=== PATIENT | female | born 1980 | race Caucasian/White ===

== ENCOUNTER 2018-03-27 12:34 | Outpatient (CLI) | payer BC ==
[~2018-03-27 12:34] MED LIST: Gadobenate Dimeglumine 529 MG/1 ML (20ML VIAL) ONE
--- NOTE | 2018-03-27 14:52 | MRI ---
MRI OF THE BRAIN WITHOUT AND WITH CONTRAST: Comparison: None. History: Migraine headaches that are lasting longer. Comparison: 09-06-08 Technique: Multiplanar, multisequence MR images were obtained of the brain without and with IV contra st. FINDINGS: There are a few scattered foci of high FLAIR signal in the subcortical and periventricular white felipe er. When compared to the prior examination, these appear to have slightly worsened. No restricted dif fusion is seen to suggest an acute infarction. No abnormal enhancement is seen. There is no evidence of hydrocephalus, intracranial hemorrhage, or extraaxial fluid collection. The e xpected flow voids are present. The corpus callosum, pituitary, and craniocervical junction are unrem arkable. Calvarium and overlying soft tissues are unremarkable. The visualized paranasal sinuses and mastoid a ir cells are well aerated. IMPRESSION: There is scattered foci of high T2/FLAIR signal in the subcortical and periventricular white matter. When compared to the prior examination, these appear to be progressing. These are nonspecific and can be seen with small vessel ischemic disease, demyelinating conditions or vasculitities. POS: JADEH
== END 2018-03-27 12:35 | disposition home or self-care (01) ==
LOC: SCSMRI 12:34
PROVIDERS: ATTEND Otolaryngology Plastic Surgery within the Head & Neck
DX: G43.909 Migraine, unspecified, not intractable, without status migrainosus (principal); R93.0 Abnormal findings on diagnostic imaging of skull and head, not elsewhere classified
CPT/HCPCS: 70553; A9579

== ENCOUNTER 2018-06-08 16:04 | Outpatient (CLI) | payer BC | END 2018-06-08 16:05 | disposition home or self-care (01) | LOC: CTENTCT 16:04 | PROVIDERS: ATTEND Physician Assistant | DX: J01.91 Acute recurrent sinusitis, unspecified (principal) | CPT/HCPCS: 70486 ==

== ENCOUNTER 2018-07-05 07:34 | Day surgery (SDC) | payer BC ==
[2018-07-04 13:26] VITALS: BMI 28.0
[2018-07-05] MEDS ORDERED: Oxymetazoline HCl 0.05% ( 15 ML ) ONE ×2 (08:26→08:50)
[2018-07-05] MEDS ORDERED: Fentanyl 100 MCG/2 ML VIAL ONE ×4 (08:47→10:25)
[2018-07-05] MEDS ORDERED: Midazolam HCl 2 mg/2 ml Vial ONE (08:47)
[2018-07-05] MEDS ORDERED: Lidocaine 1% w/Epinephrine 1:100K 30 ML VIAL ONE (08:50)
[2018-07-05] MEDS ORDERED: Bacitracin Zinc Ointment 30 gm TUBE ONE (08:50)
[2018-07-05] MEDS ORDERED: HYDROcodone/Acetaminophen 5/325 mg Tablet ONE (11:00)
[2018-07-05] MEDS ORDERED: Ondansetron HCl/PF 4 MG/2 ML Vial ONE (14:39)
[2018-07-05] MEDS ORDERED: Dexamethasone 20 MG/5 ML VIAL ONE (14:39)
[2018-07-05] MEDS ORDERED: Lidocaine 1% PF 5 ML VIAL ONE (14:39)
[2018-07-05] MEDS ORDERED: PROPOFOL 200 MG/20 ML VIAL ONE (14:39)
--- NOTE | 2018-07-06 10:11 | OP ---
PREOPERATIVE DIAGNOSES: 1. Chronic rhinosinusitis. 2. Bilateral inferior turbinate hypertrophy. 3. Nasal obstruction. POSTOPERATIVE DIAGNOSES: 1. Chronic rhinosinusitis. 2. Bilateral inferior turbinate hypertrophy. 3. Nasal obstruction. PROCEDURES: 1. Bilateral endoscopic sinus surgery, total ethmoidectomies. 2. Bilateral endoscopic sinus surgery, maxillary antrostomies. 3. Bilateral endoscopic sinus surgery, frontal sinusotomies. 4. Bilateral inferior turbinate submucosal resection. SURGEON: Venu Roth M.D. ESTIMATED BLOOD LOSS: 20 mL. COMPLICATIONS: None. ANESTHESIA: GETA. PROCEDURE IN DETAIL: The patient was taken to the operating room and placed on the table. General e ndotracheal anesthesia obtained by the staff. Tube was secured in the left lower lip. The patient w as placed in the beach chair position and was prepped and draped in standard surgical fashion. Follo wing this, the 0 degree endoscope was advanced in the nasal cavity. 1% lidocaine with 1:100,000 epin ephrine was injected into the inferior turbinates, middle turbinates and lateral nasal wall. Followi ng this, the 0 degree endoscope was advanced in the nasal cavity. The middle turbinates were gently medialized using a Berthoud elevator. The uncinate process was noted to be atrophic and lateralized. U sing a ball-ended probe, the uncinate process was anteriorly fractured. Following this, the uncinate process was removed using the straight microdebrider and upbiting Blakesley forceps bilaterally. Fo llowing this, the natural maxillary sinus ostia was identified and was gently widened using the ball- ended probe bilaterally. The maxillary sinus ostia were then further widened using the microdebrider and straight Blakesley forceps. Following this, the ethmoidal bulla was identified bilaterally and was punctured on its medial and inferior aspect with the microdebrider was removed. Following this, the grand lamella was identified and was punctured in the posterior ethmoidal cells. Working from po sterior to anterior, the ethmoidal cells were opened in a mucosal-sparing technique. Following this, the 30-degree endoscope along with 40-degree microdebrider blade was then used to further open the f rontal recess cells and open the frontal sinus ostia bilaterally. Following this, the nasal cavity w as irrigated, Mirapex were placed in the middle meatus. Inferior turbinates were then punctured on t he anterior inferior aspect with the submucosal microdebrider and submucosal resection was performed bilaterally. The patient tolerated the procedure well.
== END 2018-07-05 11:45 | disposition home or self-care (01) ==
LOC: SDC 07:34
PROVIDERS: ATTEND Otolaryngology Plastic Surgery within the Head & Neck
PROC: 09TV8ZZ Resection of Left Ethmoid Sinus, Via Natural or Artificial Opening Endoscopic (ICD-10-PCS; principal; 2018-07-05)
PROC: 09TU8ZZ Resection of Right Ethmoid Sinus, Via Natural or Artificial Opening Endoscopic (ICD-10-PCS; principal; 2018-07-05)
DX: J32.9 Chronic sinusitis, unspecified (principal); J34.3 Hypertrophy of nasal turbinates; J30.0 Vasomotor rhinitis
CPT/HCPCS: 36415; 85014; 96374; 96376; J1100; J2001; J2250; J2405; J2704; J3010; J7620

== ENCOUNTER 2019-07-18 16:07 | Outpatient (CLI) | payer BC ==
--- NOTE | 2019-07-18 16:48 | RAD ---
SUPINE ABDOMEN: 07/18/19 INDICATIONS: Constipation. Prominent stool and gas throughout the colon consistent with the history of constipation. Scattered n onspecific small bowel gas is noted. No mass effect. Postoperative changes are noted in the upper abd omen with surgical clips. IMPRESSION: Prominent stool throughout the colon. POS: OFF
== END 2019-07-18 16:08 | disposition home or self-care (01) ==
LOC: BICRAD 16:07
PROVIDERS: ATTEND Physician Assistant Medical
DX: K59.01 Slow transit constipation (principal); R19.5 Other fecal abnormalities
CPT/HCPCS: 74019

== ENCOUNTER 2019-08-09 12:11 | Outpatient (CLI) | payer BC ==
--- NOTE | 2019-08-09 13:04 | RAD ---
Colonic motility study-KUB: 08/09/2019 HISTORY: Initial radiograph following ingestion of Sitzmarks for colonic motility assessment. FINDINGS: There are clips in the right upper quadrant. Clips and postsurgical suture material noted i n the left upper quadrant. There is a collection of round radiopaque Sitzmarks in the medial left upper quadrant, consistent wit h recently ingested foreign bodies to be later imaged to determine colonic motility. The bowel gas pattern appears nonobstructed. IMPRESSION: Collection of ingested foreign bodies left upper quadrant as above
== END 2019-08-09 12:12 | disposition home or self-care (01) ==
LOC: RAD 12:11
PROVIDERS: ATTEND Internal Medicine Gastroenterology
DX: K59.01 Slow transit constipation (principal); S30.851A Superficial foreign body of abdominal wall, initial encounter
CPT/HCPCS: 74018

== ENCOUNTER 2019-08-13 11:28 | Outpatient (CLI) | payer BC ==
--- NOTE | 2019-08-13 12:15 | RAD ---
EXAM: XR Colonic Motility Study PROVIDED CLINICAL HISTORY: Constipation, slow transition of bowel contents. COMPARISON: 08/09/2019. FINDINGS: Postsurgical changes are again seen in the upper abdomen with surgical clips and radiopaque suture ma terial present. Multiple Sitzmarks were seen in the epigastric region on the prior exam which are not visualized on today's study. The lowermost rectum is not imaged on this exam. The bowel gas patte rn is overall nonspecific. No other interval change. IMPRESSION: Previously noted multiple Sitzmarks overlying the epigastric region on prior study are not visualized on today's exam. The lowermost rectum was not imaged on this exam.
== END 2019-08-13 11:29 | disposition home or self-care (01) ==
LOC: RAD 11:28
PROVIDERS: ATTEND Internal Medicine Gastroenterology
DX: K59.01 Slow transit constipation (principal)
CPT/HCPCS: 74018

== ENCOUNTER 2020-06-05 08:45 | Outpatient (CLI) | payer BC, OTHER ==
[2020-06-05 17:14] LABS: SARS-CoV-2 MS2 Positive; SARS-CoV-2 N Gene Negative; SARS-CoV-2 S Gene Negative; SARS-CoV-2 by NAA Not Detected (NotDetected); SARS-CoV-2 orf1ab Negative
== END 2020-06-05 08:46 | disposition home or self-care (01) ==
LOC: LABSCS 08:45
PROVIDERS: ATTEND Specialist
DX: E66.01 Morbid (severe) obesity due to excess calories (principal); Z20.828 Contact with and (suspected) exposure to other viral communicable diseases
CPT/HCPCS: 87635; U0003

== ENCOUNTER 2020-06-09 08:32 | Outpatient (CLI) | payer BC ==
--- NOTE | 2020-06-09 10:00 | RAD ---
EXAM: XR UGI Air Contrast PROVIDED CLINICAL HISTORY: History of prior gastric sleeve procedure. Patient is having worsening gastroesophageal reflux. COMPARISON: None FINDINGS: Single contrast upper GI was performed. The esophagus has a normal appearance without evidence of a m ucosal irregularity or focal area of narrowing. Minimal tertiary contractions were noted during the exam. There is no evidence of a hiatal hernia. Postoperative changes related to prior gastric sleeve procedure are seen, but the stomach otherwise demonstrates a normal appearance. No gastroesophageal reflux was demonstrated during the exam. The duodenum and proximal small bowel have a normal appearan ce. Asphalt Patcher image of the abdomen demonstrates postoperative changes of the upper abdomen with multiple surg ical clips and radiopaque suture material. Small to moderate amount retained fecal material is seen throughout the colon. The bowel gas pattern is nonspecific. Visualized lung bases are clear. IMPRESSION: 1. Postoperative changes related to gastric sleeve procedure. 2. No evidence of gastroesophageal reflux noted during this exam. 3. Mild tertiary contractions of the distal esophagus.
== END 2020-06-09 08:33 | disposition home or self-care (01) ==
LOC: RAD 08:32
PROVIDERS: ATTEND Specialist
DX: E66.01 Morbid (severe) obesity due to excess calories (principal); K22.8 Other specified diseases of esophagus; Z98.890 Other specified postprocedural states
CPT/HCPCS: 74246

== ENCOUNTER 2020-08-01 06:37 | Outpatient (CLI) | payer BC ==
[2020-08-03 12:10] LABS: SARS-CoV-2 MS2 Positive; SARS-CoV-2 N Gene Negative; SARS-CoV-2 S Gene Negative; SARS-CoV-2 by NAA Not Detected (NotDetected); SARS-CoV-2 orf1ab Negative
--- NOTE | 2020-08-06 06:55 | EKG ---
Test Reason : Blood Pressure : / mmHG Vent. Rate : 082 BPM Atrial Rate : 082 BPM P-R Int : 118 ms QRS Dur : 092 ms QT Int : 368 ms P-R-T Axes : 044 072 013 degrees QTc Int : 429 ms Normal sinus rhythm Normal ECG No previous ECGs available Confirmed by ZOYA THOMAS MD ([id number]) on 08/06/2020 6:55:38 AM Referred By: RANJANA Confirmed By:ZOYA THOMAS MD
== END 2020-08-01 06:38 | disposition home or self-care (01) ==
LOC: LABBT 06:37
PROVIDERS: ATTEND Specialist
DX: Z01.818 Encounter for other preprocedural examination (principal); K21.9 Gastro-esophageal reflux disease without esophagitis; K30 Functional dyspepsia; Z91.89 Other specified personal risk factors, not elsewhere classified; Z98.84 Bariatric surgery status; Z20.828 Contact with and (suspected) exposure to other viral communicable diseases
CPT/HCPCS: 87635; 93005; 93010; U0003

== ENCOUNTER 2020-08-01 13:15 | Inpatient (IN) | payer BC ==
--- NOTE | 2020-08-05 08:06 | HP ---
HISTORY OF PRESENT ILLNESS: Angella Adrian is a 39-year-old female, who has undergone laparoscopic cholecystectomy on 05/23/2015 and subsequent laparoscopic sleeve gastrectomy on 05/17/2016 for morbid obesity, 280 pounds, 41 BMI. Comorbidities of anxiety, low back pain, elevated cholesterol, and triglycerides. The patient had mild reflux controlled with Prilosec at that time, it did not feel to be prohibitive for sleeve gastrectomy. The patient has done well postoperatively after sleeve gastrectomy. During the COV period though, she has gained weight. She was seen by Dr. Stokes for a period of time, underwent endoscopies, 24-hour pH monitoring for complaint of reflux. Reflux become so severe that she was taking two a day PPIs and adding a third medication. PH monitor revealed significant reflux, but also revealed that she is having more symptoms than reflux demonstrated. She also had problems with colonic motility and undergone colonic motility study that was normal. She is followed by Dr. Nathan Skinner. The patient's initial preoperative weight 280 pounds and 41 BMI. Followup October 08, 2016 revealed her to have a 28 BMI. She presented back to see me 06/10/2020 noting 35 BMI and 241 pounds. The patient had gained weight over . She was asked to see Oseas, our dietitian, who talked to her about her eating habits, which she has adjusted. She has had an upper GI revealing a tortuous sleeve gastrectomy. She underwent EGD with Dr. Charles Johnson demonstrating a tortuous sleeve gastrectomy with retained food particles. There was no obstruction. Considering the patient's reflux problems and her gastric emptying problems without mechanical obstruction, agree with her desire to have a laparoscopic sleeve gastrectomy revision. She understands risks of revision, increased leakage, bleeding, reoperation, and we will proceed with that. She will visit our dietitian to refresh her memory and preop and perioperative dietary progression and changes regarding her laparoscopic Karthikeyan-en-Y gastric bypass. Risks and benefits, as noted above, explained, questions answered. Weight today 233 pounds, 34 BMI. Laboratories, June 06, 2020 reveals normal comprehensive metabolic profile. Hemoglobin A1c of 5.4. Cholesterol of 230, triglycerides 147, and normal vitamins. CBC June 06, hemoglobin 12. White count 6.7 and platelet count 318,000. MEDICATIONS: 1. Protonix 40 mg once a day. 2. Xyzal. ALLERGIES: , AMITRIPTYLINE, AND APRESOLINE. PAST MEDICAL HISTORY: Anxiety, chronic back pain, celiac disease, mildly elevated cholesterol, reflux, poor gastric emptying, and constipation. PAST SURGICAL HISTORY: Laparoscopic cholecystectomy 05/23/2015, sleeve gastrectomy laparoscopic 05/07/2016, and endoscopic sinus surgery 07/05/2018. FAMILY HISTORY: Hypertension and obesity. SOCIAL HISTORY: Tobacco, none. Alcohol, rarely. Occasional beer. REVIEW OF SYSTEMS: Ten-point noncontributory. PHYSICAL EXAMINATION: VITAL SIGNS: Height 5 feet 9 inches, 233 pounds, and 34 BMI. 125/81, 75, 97.4 degrees. HEAD, EARS, EYES, NOSE, AND THROAT: Unremarkable. LUNGS: Clear to auscultation. CARDIAC: Regular rate and rhythm without murmur or gallop. ABDOMEN: Soft, obese. Trocar sites well healed without hernias. EXTREMITIES: No edema. ASSESSMENT AND PLAN: 1. Morbid obesity. Plan laparoscopic Karthikeyan-en-Y gastric bypass conversion, risk of revisional surgery discussed. Questions answered. 2. Elevated cholesterol. 3. Reflux. 4. Poor gastric emptying. Job ID: [id number]
--- NOTE | 2020-08-05 14:17 | HP ---
ADDENDUM: This is an addendum to history and physical #[id number] dictated 07/08/2020. Angella Adrian, a 39-year-old female, history of laparoscopic cholecystectomy in April 2015 and sleeve gastrectomy in April 2016. Did well initially, losing weight, but had weight regain. Postoperatively, she lost down to 189 pounds but since June 08 she has gained weight to 233 pounds, 34 BMI. Preoperative weight 280 pounds, 41 BMI. She has seen Lizbet, our dietitian, discussed with her, made efforts, and she has not gained weight, but has not lost significant weight. She has undergone upper GI, which was unremarkable, consistent with sleeve gastrectomy. Dr. Charles Johnson performed upper endoscopy, retained food particles and some convolution of the sleeve. She was placed on full liquids there, but has been back on a bariatric diet, doing well. The plan is to proceed with revision to laparoscopic gastric bypass. She understands risks and benefits, consents. Questions answered. She has an appointment to see our dietitian and regulatory compliance coordinator regarding perioperative staged diet advancement for post gastric bypass. She understands the increased risk of revisional surgery and will proceed. Please refer to recent dictation [id number] for details of her past history, which has not changed. PHYSICAL EXAMINATION: VITAL SIGNS: Height 5 feet 9 inches, 233 pounds, 34 BMI, 130/95, 102/97. HEAD, EARS, EYES, NOSE, AND THROAT: Unremarkable. LUNGS: Clear to auscultation. CARDIAC: Regular rate and rhythm without murmur or gallop. ABDOMEN: Soft, nontender. EXTREMITIES: Unremarkable. ASSESSMENT: Weight regain after sleeve gastrectomy with post sleeve gastrectomy changes and gastric emptying problems leading to reflux and gastric emptying problems. PLAN: Revision to a gastric bypass. Risks and benefits as discussed. Job ID: [id number]
[2020-08-06] MEDS ORDERED: cefOXitin Sodium/Dextrose 2 GM/50 ML BAG ONE (06:36)
[2020-08-06] MEDS ORDERED: Acetaminophen 500 MG TAB ONE (06:37)
[2020-08-06] MEDS ORDERED: Heparin 5,000 UNITS/ML VIAL ONE (06:37)
[2020-08-06] MEDS ORDERED: Ketorolac Tromethamine 30 MG/ML VIAL ONE (06:37)
[2020-08-06] MEDS ORDERED: Scopolamine 1.5 mg/72 hour Patch ONE (06:38)
[2020-08-06] MEDS ORDERED: Gabapentin 300 MG CAP ONE (06:38)
[2020-08-06] MEDS ORDERED: Lidocaine 1% w/Epinephrine 1:100K 20 ML VIAL ONE (06:39)
[2020-08-06] MEDS ORDERED: Bupivacaine 0.25% HCL 30 ML VIAL ONE (06:39)
[2020-08-06] MEDS ORDERED: Fentanyl 100 MCG/2 ML VIAL ONE ×2 (07:38→10:56)
[2020-08-06] MEDS ORDERED: Dexmedetomidine 200 MCG/2 ML VIAL ONE (07:38)
[2020-08-06] MEDS ORDERED: HYDROmorphone 0.5 MG/0.5 ML SYRINGE ONE (07:39)
[2020-08-06] MEDS ORDERED: Promethazine HCl 25 MG/ML VIAL SLOW IVP PRN (09:13)
[2020-08-06] MEDS ORDERED: Promethazine HCl 25 MG/ML VIAL IM PRN (09:13)
[2020-08-06] MEDS ORDERED: Ondansetron HCl/PF 4 MG/2 ML Vial IVP PRN (09:13)
[2020-08-06] MEDS ORDERED: HYDROmorphone 2 MG/ML VIAL SLOW IVP PRN (09:13)
[2020-08-06] MEDS ORDERED: PACU-Morphine 4MG/ML VIAL SLOW IVP PRN (09:13)
[2020-08-06] MEDS ORDERED: ePHEDrine 50 MG/ML VIAL ONE (10:49)
[2020-08-06] MEDS ORDERED: PROPOFOL 200 MG/20 ML VIAL ONE (10:49)
[2020-08-06] MEDS ORDERED: Rocuronium Bromide 10 MG/ML (10ML VIAL) ONE (10:49)
[2020-08-06] MEDS ORDERED: PHENYLEPHRINE-NS 100 MCG/ML 10 ML SYRINGE ONE (10:49)
[2020-08-06] MEDS ORDERED: Ondansetron PF 4 MG/2 ML Vial ONE ×2 (10:49→11:01)
[2020-08-06] MEDS ORDERED: Lidocaine 1% PF 5 ML VIAL ONE (10:49)
[2020-08-06] MEDS ORDERED: Dexamethasone 20 MG/5 ML VIAL ONE (10:49)
[2020-08-06] MEDS ORDERED: Glycopyrrolate 0.2 MG/ML 5 ML SYRINGE ONE (10:49)
[2020-08-06] MEDS ORDERED: HYDROmorphone 2 MG/ML VIAL ONE (10:56)
[2020-08-06] MEDS ORDERED: Promethazine HCl 25 MG/ML VIAL ONE (11:01)
[2020-08-06] MEDS ORDERED: Morphine 2 MG/ML VIAL SLOW IVP PRN (11:17)
[2020-08-06] MEDS ORDERED: Acetaminophen 325 MG/10.15 ML UDCUP PO PRN (11:17)
[2020-08-06] MEDS ORDERED: diphenhydrAMINE 50 MG/ML VIAL IVP PRN (11:17)
[2020-08-06] MEDS ORDERED: hydrALAZINE 20 MG/ML VIAL SLOW IVP PRN (11:17)
[2020-08-06] MEDS ORDERED: Morphine 4 MG/ML VIAL SLOW IVP PRN (11:17)
[2020-08-06] MEDS ORDERED: Methocarbamol 500 MG TAB PO PRN (11:21)
[2020-08-06] MEDS ORDERED: ALPRAZolam 0.5 MG TAB PO PRN (11:21)
--- NOTE | 2020-08-06 12:01 | OP ---
DATE OF PROCEDURE: 08/06/2020 PREOPERATIVE DIAGNOSES: Bariatric surgery status, history of laparoscopic sleeve gastrectomy with weight regain, gastric sleeve motility emptying disorder and gastroesophageal reflux disease. POSTOPERATIVE DIAGNOSES: Bariatric surgery status, history of laparoscopic sleeve gastrectomy with weight regain, gastric sleeve motility emptying disorder and gastroesophageal reflux disease. Sleeve gastrectomy 05/17/2016 , 280 pounds, 41 BMI, did well, losing weight to a 28 BMI and weight regain to 35 BMI, 241 pounds, with reflux and gastric emptying problems. PROCEDURE PERFORMED: Revision of laparoscopic sleeve gastrectomy to a laparoscopic Karthikeyan-en-Y gastric bypass, 100 cm antecolic Karthikeyan limb, 25 mm transoral EEA stapler. Anastomosis checked under water with air insufflation, no leak. LINE AND FRAME POLER: Dr. Gooden. ANESTHESIA: General anesthesia local 0.25% Marcaine 60 mL, 1% Xylocaine with epinephrine 20 mL, total volume used. DESCRIPTION OF PROCEDURE: The patient was taken to the operating room, where under general anesthesia, abdomen was prepared with ChloraPrep and draped in routine fashion. Local anesthetic was infiltrated in the skin and subcutaneous tissue about all port sites. Supraumbilical incision made through the old port site scar and pneumoperitoneum to 15 mmHg was obtained with a Veress needle, replaced with a 5 port laparoscope inserted. Remainder of the ports placed under laparoscopic visualization. Bilateral midclavicular upper abdominal incision was made and we were possibly using her old scar, and a 12 mm port placed on the right and 15 port on the left. Bilateral far lateral subcostal incision made and 5 ports placed. Subxiphoid incision made in the liver and tractor inserted. Valerie retracting the left lobe of liver anterior, held in place with Manuel arm. The ligament of Treitz identified and about 20 cm from the ligament of Treitz, the small bowel was divided with a JARRELL white load stapler and adjacent mesentery, another fire of the JARRELL white load stapler, noted good hemostasis. Karthikeyan limb measured to 100 cm and a jejunojejunostomy created with 3 fires of linear stapler, initially anastomosis one fire, then common enterostomy closed with 2 fires. Mesenteric defect closed with 2-0 Vicryl [id number] suture. The patient was placed in steep reverse Trendelenburg position. Omental split made to the transverse colon and Karthikeyan limb placed in the upper abdomen and then inspection of the gastric sleeve noted, adhesions taken down straightening the gastric sleeve, oriented it. About 5 or 6 cm from the gastroesophageal junction just below a large venous plexus, the lesser sac was entered and all instruments removed from the stomach and after careful dissection and visualization, stomach was straightened with adhesiolysis and a blue load fire of the stapler performed. This divided the sleeve. At this point, the Anesthesia lubricated the nasogastric tube with transoral EEA stapler anvil, directing it down towards the stomach and making a small gastrostomy, bringing the tube out and delivering the EEA stapler into the gastric pouch. The NG tube was disconnected and the Karthikeyan limb opening made at the staple line and the EEA stapler introduced through the left upper quadrant 15 mm port site, removing the port, inserting into the Karthikeyan limb and directing the post out of the antimesenteric border of the small bowel under direct laparoscopic visualization and connected to the anvil, approximated within the torque fire range, firing it, removing the ample. The opening of the main small bowel then divided with a white load JARRELL stapler removing a segment of the bowel. Gastrojejunostomy anastomosis reinforced with 3 interrupted seromuscular sutures of 3-0 Vicryl, right posterolateral, left posterolateral, left anterolateral. Orogastric tube then advanced by Anesthesia in the esophagus and the gastric pouch visualized laparoscopically, insufflating air with occluding the small bowel outlet with the atraumatic bowel clamp, distending the gastrojejunostomy, noting no leaks under water. Tube was removed. Good hemostasis noted. All irrigant was removed and a 15 mm port site closed with a GraNee needle [id number] 0 Vicryl suture. Once this was completed, the wound was copiously irrigated. All instruments removed. Good hemostasis noted. Irrigant and pneumoperitoneum evacuated. All skin incisions approximated with interrupted subdermal 4-0 Monocryl and Porter glue applied. Job ID: [id number]
[2020-08-06] MEDS ORDERED: D5 1/2 NS w/20 mEq KCL 1,000 ML ONE (14:04)
[2020-08-06] MEDS: D5 1/2 NS w/20 mEq KCL 1,000 ML IV SCH ×2 (14:20→23:57)
[2020-08-06] MEDS: Ketorolac Tromethamine 30 MG/ML VIAL IVP SCH ×3 (15:01→23:14)
[2020-08-06] MEDS: Ondansetron PF 4 MG/2 ML Vial IVP PRN (15:37)
[2020-08-06 15:58] VITALS: BMI 33.3
[2020-08-06] MEDS: Hydrocodone-Acetamin 15 ML UDCUP PO PRN ×2 (18:19→23:11)
[2020-08-06] MEDS: Bupropion 150 MG XL TAB PO SCH (20:42)
[2020-08-06] MEDS ORDERED: Enoxaparin Sodium 40 MG/0.4 ML SYRINGE SC SCH (21:00)
[2020-08-06] MEDS ORDERED: Amitriptyline HCl 10 MG TAB PO SCH (21:00)
[2020-08-07] MEDS: Ondansetron PF 4 MG/2 ML Vial IVP PRN (02:01)
[2020-08-07] MEDS: D5 1/2 NS w/20 mEq KCL 1,000 ML IV SCH (03:19)
[2020-08-07 03:44] VITALS: TEMP 98.1
[2020-08-07] MEDS: Ketorolac Tromethamine 30 MG/ML VIAL IVP SCH (05:03)
[2020-08-07 05:24] LABS: #Lymphocytes 1.6 thou/uL (1.20-3.40); #Neutrophils 8.7 thou/uL (1.40-6.50); %Basophils 0.2 % (0.0-1.0); %Eosinophils 0.1 % (0.0-10.0); %Lymphocytes 13.9 % (21.0-51.0); %Monocytes 8.8 % (0.0-10.0); Hemoglobin 11.1 g/dL (12.0-16.0); Mean Corpuscular HGB CONC 30.8 g/dL (32.0-36.0); Mean Corpuscular Hemoglobin 26.5 pg (27.0-31.0); Mean Platelet Volume 6.9 fL (7.4-10.4); Platelet Count 327 thou/uL (130-400); Red Blood Cell (RBC) Count 4.19 mill/uL (4.20-5.40); White Blood Cell (WBC) Count 11.3 thou/uL (4.8-10.8)
[2020-08-07 05:42] LABS: Anion Gap 11 mmol/L (10-20); BUN (Urea Nitrogen) 10 mg/dL (7.0-18.7); Calc. Creatinine Clearance 127 mL/min (70-130); Calcium 8.4 mg/dL (7.8-10.44); Carbon Dioxide 26 mmol/L (22-29); Chloride 105 mmol/L (98-107); Estimated GFR-MDRD 65; Glucose 123 mg/dL (70-105); Potassium 4.7 mmol/L (3.5-5.1); Sodium 137 mmol/L (136-145)
[2020-08-07 07:25] VITALS: BP 108/74
[2020-08-07] MEDS: Hydrocodone-Acetamin 15 ML UDCUP PO PRN (07:36)
[2020-08-07] MEDS: Bupropion 150 MG XL TAB PO SCH (07:39)
[2020-08-07] MEDS ORDERED: Pantoprazole 40 MG VIAL IVP SCH (09:00)
[2020-08-07] MEDS ORDERED: Citalopram 20 MG TAB PO SCH (09:00)
--- NOTE | 2020-08-08 02:07 | DIS ---
DATE OF ADMISSION: 08/06/2020 DATE OF DISCHARGE: 08/07/2020 SUBJECTIVE: Angella Adrian is doing well today. She is tolerating her diet. She has not had any nausea or vomiting. She did have one episode of nausea after morphine, but none since. She is tolerating her liquids. OBJECTIVE: VITAL SIGNS: 98.1, 72, and 108/74. LUNGS: Clear to auscultation. CARDIAC: Regular rate and rhythm without murmur or gallop. ABDOMEN: Soft and nontender. EXTREMITIES: Unremarkable. LABORATORY DATA: White count 11 and hemoglobin 11. Basic metabolic profile normal. Potassium 4.7. ASSESSMENT AND PLAN: Doing well after laparoscopic revision of gastric sleeve bypass. She understands her dietary progression, being discharged home on bariatric liquids, advance to pureed after two weeks and after four weeks advancing to soft diet. She will take her vitamins and protein. She is to resume her home medications. She will follow up with me in 1 to 2 weeks for appointment. Diet and activity as tolerated. Job ID: [id number]
--- NOTE | 2020-08-08 10:22 | DIS ---
DATE OF ADMISSION: 08/06/2020 DATE OF DISCHARGE: 08/07/2020 DISCHARGE DIAGNOSES: Morbid obesity, history of bariatric surgery status post gastric sleeve, subsequently developed reflux and some tortuosity of her sleeve due to adhesive process and weight regain. PROCEDURES THIS HOSPITALIZATION: Laparoscopic sleeve gastrectomy, revised to a laparoscopic Karthikeyan-en-Y gastric bypass. HISTORY: A 39-year-old female, history of sleeve gastrectomy, sustained good weight loss, but weight regain, developing reflux, undergoing extensive evaluation at [facility] with 24 hour pH monitoring, upper endoscopy, upper GI, dietary and bariatric consultation, admitted for above-described procedure, postoperatively doing well. Discharged home on bariatric liquid diet, progressing to pureed, in 2 weeks she will take vitamin supplements, resume her home medications. Job ID: [id number]
== END 2020-08-07 10:20 | disposition home or self-care (01) | DRG 621 ==
LOC: SURG A 08-06 06:08 → SJJU 08-06 14:28
PROVIDERS: ADMIT Specialist; ATTEND Specialist
PROC: 0D164ZA Bypass Stomach to Jejunum, Percutaneous Endoscopic Approach (ICD-10-PCS; principal; 2020-08-06)
DX: E66.01 Morbid (severe) obesity due to excess calories (principal); K30 Functional dyspepsia; F41.9 Anxiety disorder, unspecified; E78.00 Pure hypercholesterolemia, unspecified; K21.9 Gastro-esophageal reflux disease without esophagitis; G89.29 Other chronic pain; Z68.41 Body mass index [BMI] 40.0-44.9, adult; Z88.8 Allergy status to other drugs, medicaments and biological substances
CPT/HCPCS: 36415; 80048; 85025; C9113; J0694; J1100; J1170; J1644; J1650; J1885; J2270; J2405; J2550; J2704; J3010; J3480; J3490; S0020

== ENCOUNTER 2021-03-19 10:53 | Outpatient (CLI) | payer BC | END 2021-03-19 10:54 | disposition home or self-care (01) | LOC: BICRAD 10:53 | PROVIDERS: ATTEND Family Medicine | DX: Z01.818 Encounter for other preprocedural examination (principal) | CPT/HCPCS: 36415; 71046; 80053; 81001; 85025; 85610; 85730 ==

== ENCOUNTER 2023-03-23 14:53 | Outpatient (CLI) | payer BC | END 2023-03-23 14:54 | disposition home or self-care (01) | LOC: RAD 14:53 | PROVIDERS: ATTEND Internal Medicine Critical Care Medicine | DX: J45.902 Unspecified asthma with status asthmaticus (principal); R06.00 Dyspnea, unspecified | CPT/HCPCS: 71046 ==